=== PATIENT | female | born 1955 | race Caucasian/White ===

== ENCOUNTER 2021-05-18 08:43 | Outpatient (REF) | payer OTHER, SELFPAY ==
--- NOTE | ~2021-05-18 | MM_ITS ---
EXAMINATION: MM SCREENING DIGITAL BREAST TOMOSYNTHESIS, BILATERAL CLINICAL INFORMATION: Screening. Asymptomatic. The lifetime risk of breast cancer based on the Tyrer-Cuzick Model is 6%. COMPARISON: Mammography: 05/12/2020, 02/13/2019, 01/03/2018, 12/28/2016, 12/19/2019 TECHNIQUE: Digital breast tomosynthesis is performed in both the craniocaudal and mediolateral oblique views along with computer-aided detection (CAD). Synthesized 2D images are generated from the tomosynthesis. FINDINGS: There are scattered areas of fibroglandular density (ACR BI-RADS breast composition Category b). There are no significant masses, abnormal calcifications, or other abnormalities. Parenchymal pattern is similar to prior studies. There is biopsy clip marker again noted anterior 3:00 left breast. The skin contours are smooth. No significant changes. MM/MM tomosynthesis screening BI IMPRESSION: No mammographic evidence of malignancy. ASSESSMENT: BI-RADS 1: Negative RECOMMENDATION: Routine annual mammography screening. This patient's information was entered into a reminder system with a target due date for their next mammogram.
== END 2021-05-18 08:44 | disposition home or self-care (01) ==
LOC: HO.MAMMO 08:43
PROVIDERS: PCP Internal Medicine; Visit Provider Internal Medicine
DX: Z12.31 Encounter for screening mammogram for malignant neoplasm of breast (principal)
CPT/HCPCS: 77063; 77067

== ENCOUNTER 2022-05-22 10:09 | Outpatient (REF) | payer MEDICARE, SELFPAY ==
--- NOTE | ~2022-05-22 | MM_ITS ---
EXAMINATION: MM SCREENING DIGITAL BREAST TOMOSYNTHESIS, BILATERAL CLINICAL INFORMATION: Screening. Asymptomatic. The lifetime risk of breast cancer based on the Tyrer-Cuzick Model is 5%. COMPARISON: Mammography: 05/18/2021, 05/12/2020, 02/13/2019 TECHNIQUE: Digital breast tomosynthesis is performed in both the craniocaudal and mediolateral oblique views along with computer-aided detection (CAD). Synthesized 2D images are generated from the tomosynthesis. FINDINGS: There are scattered areas of fibroglandular density (ACR BI-RADS breast composition Category b). There are no significant masses, abnormal calcifications, or other abnormalities. Parenchymal pattern is similar to prior studies. No developing density or architectural abnormality. Biopsy clip marker again noted anterior 3:00 left breast. The axilla are unremarkable. No significant changes. MM/MM tomosynthesis screening BI IMPRESSION: No mammographic evidence of malignancy. ASSESSMENT: BI-RADS 1: Negative RECOMMENDATION: Routine annual mammography screening. This patient's information was entered into a reminder system with a target due date for their next mammogram.
== END 2022-05-22 10:10 | disposition home or self-care (01) ==
LOC: HO.MAMMO 10:09
PROVIDERS: PCP Internal Medicine; Visit Provider Internal Medicine
DX: Z12.31 Encounter for screening mammogram for malignant neoplasm of breast (principal)
CPT/HCPCS: 77063; 77067

== ENCOUNTER 2022-10-18 07:56 | Outpatient (REF) | payer MEDICARE, SELFPAY ==
--- NOTE | ~2022-10-18 | MM_ITS ---
EXAMINATION: BONE DENSITOMETRY CLINICAL INDICATION: Osteopenia. COMPARISON: Baseline BD dated 02/13/2019. TECHNIQUE: Using a [employer] DXA System (software version: 13.1) manufactured by [employer], dual-energy x-ray absorptiometry was performed of the lumbar spine and left hip. The images are of good technical quality. Summary results are attached. FINDINGS: AP SPINE L1-L4: Current: BMD 0.959 g/cm2, Z-score 0.0, T-score -1.8, osteopenia, 17.0% decrease from baseline (<5% change is not significant). Baseline: BMD 1.155 g/cm2. LEFT FEMUR, NECK: Current: BMD 0.807 g/cm2, Z-score 0.0, T-score -1.7, osteopenia. Baseline: BMD 0.812 g/cm2. LEFT FEMUR, TOTAL: Current: BMD 0.827 g/cm2, Z-score 0.0, T-score -1.4, osteopenia, 1.7% decrease from baseline (<5% change is not significant). Baseline: BMD 0.841 g/cm2. IDENTIFIED RISK FACTORS: Menopause. HISTORY OF FRACTURE: None listed. MEDICATIONS: Vitamin D. MM/XR DEXA axial skeleton IMPRESSION: 1. DIAGNOSIS: Osteopenia based on the lowest T-score value of -1.8 in the lumbar spine applying World Health Organization criteria. 2. 10-YEAR FRACTURE RISK PREDICTION, FRAX: Major osteoporotic fracture (clinical spine, forearm, hip or shoulder) 9.2%. Hip fracture 1.2%. 3. Treatment Recommendations: NOF guidelines recommend consideration for treatment in postmenopausal women and men age 50 and older presenting with the following: -A hip or vertebral (clinical or morphometric) fracture. -T-score less than or equal to -2.5 at the femoral neck or spine after appropriate evaluation to exclude secondary causes. -Low bone mass at the hip or spine and a 10-year fracture probability by FRAX of greater than or equal to 3% for hip fracture or greater than or equal to 20% for major osteoporotic fracture based on the [place] adapted WHO algorithm. 4. Other Recommendations: All treatment decisions require clinical judgment and consideration of individual patient factors, including patient preferences, comorbidities, previous drug use, risk factors not captured in the FRAX model (e.g. frailty, falls, vitamin D deficiency, increased bone turnover, interval significant decline in bone density) and possible under or overestimation of fracture risk by FRAX. Additional medical evaluation for secondary cause of low bone mineral density may be appropriate. FUTURE SCAN RECOMMENDATION: People with diagnosed cases of osteoporosis or at high risk for fracture should have regular bone mineral density tests. For patients eligible for Medicare, routine testing is allowed once every 2 years. The testing frequency can be increased to one year for patients who have rapidly progressing disease, those who are receiving or discontinuing medical therapy to restore bone mass, or have additional risk factors.
== END 2022-10-18 07:57 | disposition home or self-care (01) ==
LOC: HO.MAMMO 07:56
PROVIDERS: PCP Internal Medicine; Visit Provider Internal Medicine
DX: Z13.820 Encounter for screening for osteoporosis (principal); M85.80 Other specified disorders of bone density and structure, unspecified site; Z78.0 Asymptomatic menopausal state
CPT/HCPCS: 77080

== ENCOUNTER 2023-05-28 09:53 | Outpatient (REF) | payer MEDICARE, SELFPAY ==
--- NOTE | ~2023-05-28 | MM_ITS ---
EXAMINATION: MM SCREENING DIGITAL BREAST TOMOSYNTHESIS, BILATERAL CLINICAL INFORMATION: Screening. Asymptomatic. COMPARISON: Mammography: This study is compared with prior exams dating back to 2018. TECHNIQUE: Digital breast tomosynthesis is performed in both the craniocaudal and mediolateral oblique views along with computer-aided detection (CAD). Synthesized 2D images are generated from the tomosynthesis. FINDINGS: There are scattered areas of fibroglandular density (ACR BI-RADS breast composition Category b). There are no significant masses, abnormal calcifications, or other abnormalities. There is a tissue marker present in the lateral aspect of the left breast from prior benign percutaneous biopsy. MM/MM tomosynthesis screening BI IMPRESSION: No mammographic evidence of malignancy. ASSESSMENT: BI-RADS BI-RADS 2 - Benign Findings RECOMMENDATION: Routine annual mammography screening. 1 year F/U This examination should not preclude the clinical evaluation of a suspicious palpable abnormality. This patient's information was entered into a reminder system with a target due date for their next mammogram.
== END 2023-05-28 09:54 | disposition home or self-care (01) ==
LOC: HO.MAMMO 09:53
PROVIDERS: PCP Internal Medicine; Visit Provider Internal Medicine
DX: Z12.31 Encounter for screening mammogram for malignant neoplasm of breast (principal)
CPT/HCPCS: 77063; 77067

== ENCOUNTER → 2023-05-28 10:15 | Outpatient (BNV) | payer MEDICARE, SELFPAY | PROVIDERS: PCP Internal Medicine; Visit Provider Radiology Diagnostic Radiology | DX: Z12.31 Encounter for screening mammogram for malignant neoplasm of breast (principal) | CPT/HCPCS: 77063; 77067 ==

== ENCOUNTER 2024-06-10 08:53 | Outpatient (REF) | payer MEDICARE, SELFPAY ==
--- NOTE | ~2024-06-10 | MM_ITS ---
EXAMINATION: MM SCREENING DIGITAL BREAST TOMOSYNTHESIS, BILATERAL CLINICAL INFORMATION: Screening. Asymptomatic. COMPARISON: Mammography: Comparison is made with available priors TECHNIQUE: Digital breast tomosynthesis is performed in both the craniocaudal and mediolateral oblique views along with computer-aided detection (CAD). Synthesized 2D images are generated from the tomosynthesis. FINDINGS: There are scattered areas of fibroglandular density (ACR BI-RADS breast composition Category b). Left marker clip from previous benign needle core biopsy. There are no significant masses, abnormal calcifications, or other abnormalities. MM/MM tomosynthesis screening BI IMPRESSION: No mammographic evidence of malignancy. ASSESSMENT: BI-RADS BI-RADS 2 - Benign Findings RECOMMENDATION: Routine annual mammography screening. 1 year F/U This examination should not preclude the clinical evaluation of a suspicious palpable abnormality. This patient's information was entered into a reminder system with a target due date for their next mammogram. Electronically signed by: Jackie Muniz DO 07/03/2024 04:05 PM EDT
== END 2024-06-10 08:54 | disposition home or self-care (01) ==
LOC: HO.MAMMO 08:53
PROVIDERS: PCP Internal Medicine; Visit Provider Internal Medicine
DX: Z12.31 Encounter for screening mammogram for malignant neoplasm of breast (principal)
CPT/HCPCS: 77063; 77067

== ENCOUNTER → 2024-06-10 09:15 | Outpatient (BNV) | payer MEDICARE, SELFPAY | PROVIDERS: PCP Internal Medicine; Visit Provider Internal Medicine | DX: Z12.31 Encounter for screening mammogram for malignant neoplasm of breast (principal) | CPT/HCPCS: 77063; 77067 ==

== ENCOUNTER 2025-06-30 10:15 | Outpatient (REF) | payer MEDICARE, SELFPAY ==
--- OUTSIDE RECORDS SUMMARY | 2024-08-28 05:30 | XMS_ITS ---
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 * Medical History: Objective: * Vitals: Assessment: Plan: * Treatment: * Images: Billing Information: * Visit Code: * Procedure Codes: * Electronic signature of JORGE LI MD on 06/30/2025 at 12:28 PM EDT Sign off status: Pending * Provider: Sophia LI MD Date: 10/28/2023 Generated for Tonyi ng/Falidiag/eTransmitting on: 0 06/30/2025 12:28 PM EDT
--- OUTSIDE RECORDS SUMMARY | 2024-10-20 06:00 | XMS_ITS ---
Author Organization [facility] Address [address] [address] Care Team Providers Care Chief Of Safety And Protection Name Role Phone WAYNE WATTERS Primary Care Provider JORGE Cowan Unavailable [phone] REASON FOR VISIT LR MEDICARE PE Encounters Encounter Location Date Provider Diagnosis [facility] [address] [address] 10/20/2024 JORGE LI Encounter for gynecological examination (general) (routine) without abnormal findings Z01.419 and Encounter for screening mammogram for malignant neoplasm of breast Z12.31 Assessments Encounter Date Diagnosis (ICD Code) Assessment Notes Treatment Notes Treatment Clinical Notes Section Notes 10/20/2024 Encounter for gynecological examination (general) (routine) without abnormal findings (ICD-10 - Z01.419) During the visit, the following areas of concern were addressed: Discussed sstopping cervical cancer screening as per ASCCP guidelines. Advised continued annual pelvic exams. Patient encouraged to increase her level of exercise. SBE technique encouraged/tau ght. Patient reminded when annual mammogram is due. Patient encouraged to keep colon screening up to date. 10/20/2024 Encounter for screening mammogram for malignant neoplasm of breast (ICD-10 - Z12.31) Plan Of Treatment Treatment Notes Assessment Notes Encounter for gynecological examination (general) (routine) without abnormal findings During the visit, the following areas of concern were addressed: Discussed sstopping cervical cancer screening as per ASCCP guidelines. Advised continued annual pelvic exams. Patient encouraged to increase her level of exercise. SBE technique encouraged/taught. Patient reminded when annual mammogram is due. Patient encouraged to keep colon screening up to date. Pending Test Test Name Order Date MM Digital Screening Mammogram 3D 2024 Next Appt Details Follow Up: 1 Year, Reason: Y early Abalone Sheller Exam Progress Notes * OTTO MANITEDOB:[birth year] (69 yo F)Acc No.[id number]:10/20/2024 PROGRESS NOTES Patient: LUIZ NG Provider: Sophia LI MD :1955 A ge:69 Y S ex:Female Date:10/20/2024 Address:[address] [place], [place] [id number] Pcp:WAYNE WATTERS Subjective: * Chief Complaints: * 1 . LR MEDICARE PE. 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 S he has been in state of good health since her last exam. She has the following concerns: *none. S he has received the [employer] Covid-19 vaccine and booster. R elationship status: * for 45 years. She is *not currently sexually active since heart surgery. Sexual partner(s): male. She does not wish to have STI testing. S he does *not report vaginal dryness. She does not have hot flashes/night sweats. T he patient has *not had an abnormal pap smear within the last 5 years. Her most recent pap smear was 04/26/2020 - NIL, neg HR HPV. Paps are no longer indicated. S he has been diagnosed with breast cancer. She does *not have a family history of breast cancer. Her last mammogram was *04/2022. S he does *not have a family history of colon cancer. She a has had a colonoscopy. The last colonoscopy was less than 5 yrs, as she gets them every 5 years. T he patient does* exercise. She exercises x 7 days/week by walking. She doesn't strength train, but she goes to rehab right now. * ROS: A nnual Abalone Sheller Exam ROS: Bowel habit changes d enies. B ladder symptoms d enies. V aginal discharge, unusual d enies. V aginal itch or odor d enies. w eight or appetite changes d enies. C hest pains, SOB d enies. d epression d enies.? B reast: Denies B reast lump. D enies N ipple discharge.? H ematology: Denies S wollen glands. S kin: Patient denies c hanging moles. P sychiatric: Denies A nxiety. * Medical History: Objective: * Vitals: * Examination: G eneral Examination: GENERAL APPEARANCE: i n no acute distress, well developed, well nourished, ethnographic materials conservator present in room. HEAD: n ormocephalic, atraumatic. NECK/THYROID: n gildardo supple, full range of motion, thyroid normal. LYMPH NODES: n o axillary or supraclavicular adenopathy.? SKIN: normal, good turgor, no rashes, no suspicious lesions. BREASTS: normal, no dimpling, no discharge, no drainage, no masses palpable bilaterally, nontender. ABDOMEN: soft, non-tender, non distended without masses or hepatosplenomegay. RECTAL: normal tone, no masses palpable. BACK: no costovertebral angle tenderness. FEMALE GENITOURINARY: V ulva without lesions or masses, vagina pink without abnormal discharge, lesions or masses, cervix appears normal and is not tender to palpation, uterus is normal size, mobile, nontender and anteverted, ovaries are not palpable. NEUROLOGIC: alert and oriented, gait normal. PSYCH: alert, oriented, cognitive function intact, cooperative with exam, good eye contact, mood/affect full range, speech clear. Assessment: * Assessment: 1. E ncounter for gynecological examination (general) (routine) without abnormal findings - Z01.419 (Primary) 2 . E ncounter for screening mammogram for malignant neoplasm of breast - Z12.31 Plan: * Treatment: 2. E ncounter for screening mammogram for malignant neoplasm of breast I maging: MM Digital Screening Mammogram 3D * Follow Up: 1 Year (Reason: Yearly Abalone Sheller Exam) * Images: Billing Information: * Visit Code: 35693 Preventive Care Est Pt. Age 65 and over. 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 She has been in state of good health since her last exam. She has the following concerns: *none. She has received the [employer] Covid-19 vaccine and booster. Relationship status: * for 45 years. She is *not currently sexually active since heart surgery. Sexual partner(s): male. She does not wish to have STI testing. She does *not report vaginal dryness. She does not have hot flashes/night sweats. The patient has *not had an abnormal pap smear within the last 5 years. Her most recent pap smear was 04/26/2020 - NIL, neg HR HPV. Paps are no longer indicated. She has been diagnosed with breast cancer. She does *not have a family history of breast cancer. Her last mammogram was *04/2022. She does *not have a family history of colon cancer. She a has had a colonoscopy. The last colonoscopy was less than 5 yrs, as she gets them every 5 years. The patient does* exercise. She exercises x 7 days/week by walking. She doesn't strength train, but she goes to rehab right now. Examination Category Sub-Category Detail Notes Category Not es General Examination GENERAL APPEARANCE: in no ac hemalatha distress, well developed, well nourished, ethnographic materials conservator present in room HEAD: normocephalic, atrau matic NECK/THYROID: neck supple, full ra nge of motion, thyroid normal ABDOMEN: soft, non-tender, no n distended without masses or hepatosplenomegay NEUROLOGIC: alert and oriented, gait normal SKIN: normal, good turgor, no rashes, no suspicious lesions BACK: no costovertebral an gle tenderness BREASTS: normal, no dimpling, no discharge, no drainage, no masses palpable bilaterally, nontender LYMPH NODES: no axillary or supra clavicular adenopathy RECTAL: normal tone, no mass es palpable PSYCH: alert, oriented, cog nitive function intact, cooperative with exam, good eye contact, mood/affect full range, speech clear FEMALE GENITOURINARY: Vulva without lesi ons or masses, vagina pink without abnormal discharge, lesions or masses, cervix appears normal and is not tender to palpation, uterus is normal size, mobile, nontender and anteverted, ovaries are not palpable
--- OUTSIDE RECORDS SUMMARY | 2025-02-09 05:30 | XMS_ITS ---
Author Organization [facility] Address [address] [place] [address] Care Team Providers Care Archival Studies Professor Name Role Phone Paul Walsh MD Primary Care Provider Unavailab Bishnu Montejo Unavailable [phone] Judi Yates Unavailable [phone] REASON FOR VISIT Seen Sooner Encounters Encounter Location Date Provider Diagnosis [facility] [address] [place] [address] 02/09/2025 Judi Yates Plan Of Treatment No Information Progress Notes * Tootie MAN ADOB: (69 yo F)Acc No.[id number]:02/09/2025 Progress Notes Patient: Tootie NG Provider: Sophia Yates DPM :1955 A ge:69 Y S ex:Female Date:02/09/2025 Address: [address] [place], [place] Pcp:Paul Walsh MD Subjective: * Chief Complaints: * 1 . Seen Sooner. * Medical History: Objective: * Vitals: Assessment: Plan: * Treatment: * Images: * The named appointment provid er may or may not be the originator of this progress note, and it is not deemed complete until electronically signed by the appointment provider. Sign off status: Pending * Provider: Sophia Yates DPM Date: 0 02/09/2025 Generated for Maria Eugenia mandujano/Jarad/Esdrasitting on: 0 06/30/2025 12:28 PM EDT
--- OUTSIDE RECORDS SUMMARY | 2025-04-27 05:00 | XMS_ITS ---
Author Organization [facility] Address [address] [facility] [place] [address] Care Team Providers Care Health And Safety Trainer Name Role Phone Paul Walsh MD Primary Care Provider Unavailab Bishnu Montejo Unavailable [phone] Encounters Encounter Location Date Provider Diagnosis [facility] [address] [place] [address] 04/27/2025 Bishnu Berger Plan Of Treatment No Information Progress Notes * Tootie MAN ADOB: (69 yo F)Acc No.[id number]:04/27/2025 Progress Note Patient: Tootie NG Provider: Adam Berger DPM :1955 A ge:69 Y S ex:Female Date:04/27/2025 [id number] Pcp:Paul Walsh MD Subjective: * Chief Complaints: * * Medical History: Objective: * Vitals: Assessment: Plan: * Treatment: * Images: * The named appointment provid er may or may not be the originator of this progress note, and it is not deemed complete until electronically signed by the appointment provider. Sign off status: Pending * Provider: Adam Berger DPM Date: 0 04/27/2025 Generated for Printi ng/Falidiag/eTransmitting on: 0 06/30/2025 12:29 PM EDT
--- NOTE | ~2025-06-30 | MM_ITS ---
EXAMINATION: MM SCREENING DIGITAL BREAST TOMOSYNTHESIS, BILATERAL CLINICAL INFORMATION: Screening. Asymptomatic. COMPARISON: Mammography: Comparison is made with available priors TECHNIQUE: Digital breast mammography with tomosynthesis is performed in both the craniocaudal and mediolateral oblique views along with computer-aided detection (CAD). FINDINGS: There are scattered areas of fibroglandular density (ACR BI-RADS breast composition Category b). Left marker clip. There are no significant masses, abnormal calcifications, or other abnormalities. MM/MM tomosynthesis screening BI IMPRESSION: No mammographic evidence of malignancy. ASSESSMENT: BI-RADS BI-RADS 2 - Benign Findings RECOMMENDATION: Routine annual mammography screening. 1 year F/U This examination should not preclude the clinical evaluation of a suspicious palpable abnormality. This patient's information was entered into a reminder system with a target due date for their next mammogram. Electronically signed by: Jackie Muniz DO 07/02/2025 05:58 PM EDT
--- OUTSIDE RECORDS SUMMARY | 2025-06-30 12:29 | XMS_ITS | Patient Health Record ---
Author Organization [facility] Address [address] [place] [address] Care Team Providers Care Coffee Shop Manager Name Role Phone Paul Walsh MD Primary Care Provider Unavailab Bishnu Montejo Unavailable [phone] Judi Yates Unavailable [phone] Allergies Allergen (clinical drug ingredient) Drug/Non Drug Allergy documented on EMR Reaction Allergy Type Onset Date Status sulfamethoxazole / trimethoprim Bactrim Unknown Drug Allergy Active erythromycin Erythromycin tougue swells Drug Allergy Active Inapsine tougue swells Drug Allergy Act bekah Reason For Referral No Information Medications Medication SIG (Take, Route, Frequency, Duration) Notes Start Date End Date Status Levsin 0.125 MG 1 tablet before meal s as needed Orally every 4 hrs Not-Taking Metoprolol Succinate 25 MG 1 capsule Orally Once a day Active Ciclopirox 0.77 % 1 application thin f ilm topically to nails Externally Once a day; Duration: 30 days Active Flaxseed Oil Active metroNIDAZOLE Active Aspir-81 Active Multivitamin Active Hyoscyamine Active Social History Tobacco Use: Social History Observation Description Date Details (start date - stop date) Never Smoker NA - NA Tobacco use other than smoking: Question Answer Notes Are you an other tobacco user? No Tobacco Control (Standard) Question Answer Notes Tobacco use: Nonsmoker Additional Findings: Tobacco non-user Current no nsmoker AUDIT-C (Standard) Question Answer Notes Did you have a drink containing alcohol in the p ast year? No Points 0 Interpretation Negative Problems Problem Type SNOMED Code ICD Code Onset Dates Problem Status W/U Status Risk Notes Problem Onychomycosis (643419392) Onychomycosis (B35.1) Active confirmed Vital Signs Height 5ft 4in in 01/21/2025 Weight 130 lbs 01/21/2025 BMI 22.31 kg/m2 01/21/2025 Encounters Encounter Location Date Provider Diagnosis [address] [address] 12/22/2024 Bishnu Berger Pain in left foot M79.672 ; Plantar fasciitis of left foot M72.2 ; Calcaneal spur, left foot M77.32 ; Interstitial myositis of left foot M60.172 and Bursitis of left foot M77.52 [facility] [address] [facility] [address] [place] [address] 01/21/2025 Bishnu Berger Plantar fasciitis of left foot M72.2 ; Onychomycosis B35.1 and Pain in left toe(s) M79.[address] [address] 12/22/2024 Bishnu Berger [address] [address] 01/21/2025 Bishnu Berger Assessments Encounter Date Diagnosis (ICD Code) Assessment Notes Treatment Notes Treatment Clinical Notes Section Notes 01/21/2025 Onychomycosis (ICD-10 - B35.1) 01/21/2025 Plantar fasciitis of left foot (ICD-10 - M72.2) 12/22/2024 Pain in left foot (ICD-10 - M79.672) 12/22/2024 Plantar fasciitis of left foot (ICD-10 - M72.2) Patient Educated with: HEEL CORD STRETCHES.pdf (HEEL CORD STRETCHES.pdf) Patient Educated with: RICE THERAPY.pdf (RICE THERAPY.pdf) 01/21/2025 Pain in left toe(s) (ICD-10 - M79.675) 12/22/2024 Calcaneal spur, left foot (ICD-10 - M77.32) 12/22/2024 Interstitial myositis of left foot (ICD-10 - M60.172) 12/22/2024 Bursitis of left foot (ICD-10 - M77.52) Plan Of Treatment Pending Test Test Name Order Date X ray : Foot, left 3V 12/22/2024 Insurance Providers Payer Name Payer Address Payer Phone Subscriber Number Group Number Insured Name Patient Relationship to Insured Coverage Start Date Coverage End Date Medicare National [employer] [address] [place] [phone] [id number] Tootie Pineda Self - patient is the insured 1 [employer] [address] [place] [address] [phone] [id number] Tootie Pineda Self - patient is the insured Medical (General) History Medical History History ICD Code Diverticulosis Chicken pox Mumps Measles Irritable bowel syndrome Lyme disease covid-19 Warts Surgical History Surgery Date(Month/Year) colorectal surgery 10/2011 Meniscus repair Open Heart 2021
--- OUTSIDE RECORDS SUMMARY | 2025-06-30 12:29 | XMS_ITS ---
Author Name [facility] Organization Unknown History of Medication Use Medication Directions Dispensed Refills Start Date End Date Stat us doxycycline hyclate 100 mg capsule 08/05/2023 active doxycycline hyclate 100 mg tablet 08/05/2023 active GaviLyte-G 236 gram-22.74 gram-6.74 gram-5.86 gram oral solution 08/05/2023 active metoprolol tartrate 25 mg tablet TAKE 1 TABLET BY MOUTH THREE TIMES A DAY 08/05/2023 active metoprolol succinate ER 25 mg tablet,extended release 24 hr active metronidazole 0.75 % topical cream active Allergies Allergen Reaction Severity Comment Documented Date Source Statu s BACTRIM [facility] ERYTHROMYCIN BASE [facility] INAPSINE [facility] Problems Problem Status Onset Date Problem Type Date of Resoluti on Source Tear of lateral meniscus of knee active 2023-06-20 ProblemAct [facility] Pain of left knee joint active 2023-05-22 ProblemAct [facility] Pain of knee region active 2023-05-15 ProblemAct [facility] Sprain of lateral collateral ligament of knee active 2023-06-12 ProblemAct [facility] Tear of medial meniscus of knee active 2023-06-20 ProblemAct [facility] Encounters Encounter Type Encounter Reason Primary Diagnosis Location Date Ambulatory [facility] 08/26/2023 Ambulatory [facility] 06/20/2023 Ambulatory [facility] 06/17/2023 Ambulatory [facility] 06/11/2023 Ambulatory [facility] 05/22/2023 Ambulatory [facility] 05/21/2023 Ambulatory [facility] 05/21/2023 Ambulatory [facility] 05/15/2023 Ambulatory [facility] 05/15/2023 Ambulatory [facility] 05/14/2023 Ambulatory [facility] 05/14/2023 Ambulatory [facility] 05/14/2023 Ambulatory [facility] 05/14/2023 Ambulatory [facility] 05/14/2023 Ambulatory [facility] 05/14/2023 Ambulatory [facility] 05/14/2023 Ambulatory [facility] 05/14/2023
--- OUTSIDE RECORDS SUMMARY | 2025-06-30 12:29 | XMS_ITS | Patient Health Record ---
Author Organization [facility] Address [address] [place] [address] Care Team Providers Care Sales Department Manager Name Role Phone WAYNE WATTERS Primary Care Provider UnavailJORGE Gabriel Unavailable [phone] Allergies Allergen (clinical drug ingredient) Drug/Non Drug Allergy documented on EMR Reaction Allergy Type Onset Date Status E-MYCIN Unknown Drug Allergy Active sulfamethoxazole / trimethoprim Bactrim vomiting Drug Allergy Active INAPSINE Swelling Drug Allergy Active Reason For Referral No Information Medications Medication SIG (Take, Route, Frequency, Duration) Notes Start Date End Date Status Metoprolol Succinate ER 25 MG 1 tablet Orally Once a day Active Flaxseed Oil Active metroNIDAZOLE Active Hyoscyamine Sulfate 0.125 MG/5ML 5 mL as needed Orally every 4 hrs Active Levsin PRN Active Multi Complete Activ e Lutein 6 MG 1 capsule with a keerthi l Orally Once a day; Duration: 30 day(s) Active Aspir-81 Active Vitamin D 25 MCG (1000 UT) 1 tablet Oral ly Once a day; Duration: 30 day(s) Active Social History Sexual History Question Answer Notes Had sex in the past 12 months (vaginal, oral, or anal)? Yes with Men only Prevention strategies discussed: Other Tobacco use other than smoking: Question Answer Notes Are you an other tobacco user? No AUDIT-C (Standard) Question Answer Notes Did you have a drink contain ing alcohol in the past year? Yes How often did you have six o r more drinks on one occasion in the past year? Never (0 point) How many drinks did you have on a typical day when you were drinking in the past year? 1 or 2 drinks (0 point) How often did you have a dri nk containing alcohol in the past year? 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 Heterosexual .CE: Smoking: none .CE: Alcohol: occasional alcohol Illicit drugs: no Seatbelt: yes Problems Problem Type SNOMED Code ICD Code Onset Dates Problem Status W/U Status Risk Notes Problem Lyme disease (07774710) Lyme disease (088.81) Active confirmed Problem Postmenopausal atrophic vaginitis (30522631) Postmenopausal atrophic vaginitis (N95.2) Active confirmed Problem Mitral valve disorder (42964299) Nonrheumatic mitral (valve) insufficiency (I34.0) Active confirmed Problem Perforation of large and small intestine due to diverticulitis (0826509258663148 ) Diverticulitis of intestine, part unspecified, with perforation and abscess without bleeding (K57.80) Active confirmed Problem Rosacea (752824678) Rosacea, unspecified (L71.9) Active confirmed Problem Irritable bowel syndrome (16144274) Irritable bowel syndrome (564.1) Active confirmed Major Vital Signs Temperature 97.1 degrees Fahrenheit 10/29/2024 Blood pressure diastolic 72 mm Hg 10/29/2024 Height 63.25 in 10/29/2024 Blood pressure systolic 110 mm Hg 10/29/2024 Weight 135 lbs 10/29/2024 BMI 23.72 kg/m2 10/29/2024 Encounters Encounter Location Date Provider Diagnosis [address] [place] [address] 10/29/2024 JORGE LI Encounter for gynecological examination (general) (routine) without abnormal findings Z01.419 and Encounter for screening mammogram for malignant neoplasm of breast Z12.31 Assessments Encounter Date Diagnosis (ICD Code) Assessment Notes Treatment Notes Treatment Clinical Notes Section Notes 10/29/2024 Encounter for gynecological examination (general) (routine) without abnormal findings (ICD-10 - Z01.419) During the visit, the following areas of concern were addressed: Discussed stopping cervical cancer screening as per ASCCP guidelines. Advised continued annual pelvic exams. Patient encouraged to increase her level of exercise. SBE technique encouraged/tau ght. Patient reminded when annual mammogram is due. Patient encouraged to keep colon screening up to date. 10/29/2024 Encounter for screening mammogram for malignant neoplasm of breast (ICD-10 - Z12.31) Plan Of Treatment Pending Test Test Name Order Date Bone Density 02/10/2019 Bone Density 06/28/2021 THIN PREP,HPV,SVETLANA IF HPV+ (>29YR)(DIAG) 02/10/2019 MM Digital Screening Mammogram 3D 2021 MM Digital Screening Mammogram 3D 2024 Insurance Providers Payer Name Payer Address Payer Phone Subscriber Number Group Number Insured Name Patient Relationship to Insured Coverage Start Date Coverage End Date MEDICARE [address] [place], [place] [id number] LUIZ MAN Self - patient is the insured MED[employer] [address] [place] [address] [phone] [id number] [employer] Self - patient is the insured Medical (General) History Medical History History ICD Code Irritable bowel syndrome with diarrhea K 58.0 Lyme disease, unspecified A69.20 Rosacea, unspecified L71.9 Diverticulitis of intestine, part unspecified, with perforation and abscess without bleeding K57.80 Nonrheumatic mitral (valve) insufficienc y I34.0 Surgical History Surgery Date(Month/Year) Left Knee Meniscus Repair Partial Colectomy for Rupture (Diverticu litis) 2011 Colonoscopy Open Heart Mitral Valve Repair 05/2022 Hospitalization History Reason Date(Month/Year) 2 Vaginal Deliveries See Surgical Hx
--- OUTSIDE RECORDS SUMMARY | 2025-06-30 12:29 | XMS_ITS | Clinical Summary ---
Author Organization [facility] it Address [address] [place] [address] Care Team Providers Care Private Wealth Advisor Name Role Phone Paul Walsh MD Primary Care Provider [phone] Surgical History Surgery Date Site/Laterality Comments KNEE SURGERY PROCEDURE:KNEE SURGERY Medical History Medical History Date Comments Lyme disease DX:Lyme disease Family History Medical History Relation Name Comments Cancer Brother Diabetes Father Relation Name Status Comments Brother Father Social History Tobacco Use Types Packs/Day Years Used Date Smoking Tobacco: Never Assessed Comments Unknown Sex and Gender Information Value Date Recorded Sex Assigned at Not on file Legal Sex Female 10:22 PM EST Gender Identity Not on file Sexual Orientation Not on file Obstetrics History Plan of Treatment Health Maintenance Due Date Last Done Comments Breast Cancer Screening 1955 DTaP,Tdap,and Td Vaccines (1 - Tdap) 1975 Pneumococcal Vaccine: 50+ Ye ars (1 of 1 - PCV) 2006 Zoster Vaccines (1 of 2) 2006 Colorectal Cancer Screening: Colonoscopy 09/15/2022 Falls Risk Assessment 09/15/2022 Hepatitis C Screening 09/15/2022 Osteoporosis Screening (Bone Density Screening) 09/15/2022 Social Influencers of Health Screening 09/15/2022 Depression Screening 10/14/2024 COVID-19 Vaccine ( - 2023-2 5 season) 2025 Influenza Vaccine (#1) 2025 RSV Immunization Adult Patie nts (1 - 1-dose 75+ series) 2031 HIB Vaccines Aged Out No longer eligi ble based on patient's age to complete this topic HPV Vaccines Aged Out No longer eligi ble based on patient's age to complete this topic Hepatitis A Vaccines Aged Out No long er eligible based on patient's age to complete this topic Hepatitis B Vaccines Aged Out No long er eligible based on patient's age to complete this topic IPV Vaccines Aged Out No longer eligi ble based on patient's age to complete this topic MMR Vaccines Aged Out No longer eligi ble based on patient's age to complete this topic Meningococcal ACWY Vaccine Aged Out N o longer eligible based on patient's age to complete this topic Meningococcal B Vaccine Aged Out No l onger eligible based on patient's age to complete this topic RSV Immunization Patients Un karena 20 months Aged Out No longer eligible b ased on patient's age to complete this topic Varicella Vaccines Aged Out No longer eligible based on patient's age to complete this topic Care Teams Private Wealth Advisor Relationship Specialty Start Date End Date Paul Walsh MD PCP - General Internal Medicine 03/29/21
--- OUTSIDE RECORDS SUMMARY | 2025-06-30 12:29 | XMS_ITS | Clinical Summary ---
Author Organization [facility] Address [address] [place] [address] Care Team Providers Care Tool Inspector Name Role Phone Paul Walsh MD Primary Care Provider Unavail able Allergies Active Allergy Reactions Criticality Noted Date Comments Sulfamethoxazole-Trimethoprim 2020 Erythromycin 03/31/2021 Droperidol 03/31/2021 Medications Medication Sig Dispensed Refills Start Date End Date Status hyoscyamine (LEVSIN) 0.125 MG tablet 0 03/01/2021 Active metroNIDAZOLE (METROCREAM) 0.75 % cream 0 02/07/2021 Active Active Problems Problem Noted Date Diagnosed Date Arthritis of knee, right 06/30/2021 Right knee injury, initial encounter 03/31/2021 Patellofemoral arthritis of right knee Family History Medical History Relation Name Comments Cancer Brother Diabetes Father Relation Name Status Comments Brother Father Social History Tobacco Use Types Packs/Day Years Used Date Smoking Tobacco: Never Assessed Sex and Gender Information Value Date Recorded Sex Assigned at Not on file Gender Identity Not on file Sexual Orientation Not on file Job Start Date Occupation Industry Not on file Not on file Not on file Last Filed Vital Signs Vital Sign Reading Time Taken Comments Blood Pressure - - Pulse - - Temperature - - Respiratory Rate - - Oxygen Saturation - - Inhaled Oxygen Concentration - - Weight 62.1 kg (137 lb) 03/31/2021 11:19 AM EDT Height 162.6 cm (5' 4 ) 03/31/2021 11:19 AM EDT Body Mass Index 23.52 03/31/2021 11:19 AM EDT Plan of Treatment Health Maintenance Due Date Last Done Comments Hepatitis C Screening 1955 COVID-19 Vaccine (#1) 01/05/1957 Depression Screening 1968 Preventative Health Evaluation 1974 DTap / Tdap / Td (1 - Tdap) 1975 Colon Cancer Screening (Colonoscopy) 2001 Breast Cancer Screening (Mammogram) 2006 Shingrix-Zoster Vaccine (1 of 2) 2006 Fall Risk Assessment 2021 Osteoporosis Screening (DEXA Scan) 2021 Pneumococcal Vaccine (1 of 1 - PCV) 2021 Influenza Vaccine (#1) 2025 RSV Adult > 60+ Yrs or Pregn ant (1 - 1-dose 75+ series) 2031 Hepatitis B Vaccines Aged Out No long er eligible based on patient's age to complete this topic RSV Ped < 20 months Aged Out No longe r eligible based on patient's age to complete this topic Care Teams Tool Inspector Relationship Specialty Start Date End Date Paul Walsh MD PCP - General Internal Medicine 03/29/21
== END 2025-06-30 10:16 | disposition home or self-care (01) ==
LOC: HO.MAMMO 10:15
PROVIDERS: PCP Internal Medicine; Visit Provider Internal Medicine
DX: Z12.31 Encounter for screening mammogram for malignant neoplasm of breast (principal)
CPT/HCPCS: 77063; 77067

== ENCOUNTER → 2025-06-30 10:30 | Outpatient (BNV) | payer MEDICARE, SELFPAY | PROVIDERS: PCP Internal Medicine; Visit Provider Internal Medicine | DX: Z12.31 Encounter for screening mammogram for malignant neoplasm of breast (principal) | CPT/HCPCS: 77063; 77067 ==